=== PATIENT | male | born 1955 | race Caucasian/White ===

== ENCOUNTER 2024-09-28 11:44 | Inpatient (IN) | payer MEDICARE ==
[2024-09-28 12:18] LABS: BASOPHILS PERCENT AUTO 0.1 % (0.1-1.3); EOSINOPHILS PERCENT AUTO 0.1 % (0.0-5.4); IMMATURE GRAN ABSOLUTE AUTO 0.04 K/uL (0.00-0.23); IMMATURE GRAN PERCENT AUTO 0.5 % (0.0-0.7); LYMPHOCYTES ABSOLUTE AUTO 0.91 K/uL (0.8-3.3); LYMPHOCYTES PERCENT AUTO 11.2 % (11.4-47.7); MONOCYTES ABSOLUTE AUTO 0.39 K/uL (0.20-0.90); MONOCYTES PERCENT AUTO 4.8 % (3.3-12.6); NEUTROPHILS ABSOLUTE AUTO 6.77 K/uL (1.0-7.6); NEUTROPHILS PERCENT AUTO 83.3 % (40.0-78.1); PLATELET COUNT,PLT 183 K/uL (130-375); RED BLOOD CELL COUNT 3.79 M/uL (4.14-5.76); WHITE BLOOD CELL COUNT,WBC 8.1 K/uL (3.2-11.0)
[2024-09-28 12:23] LABS: BASOPHILS ABSOLUTE AUTO 0.01 K/uL (0.00-0.10); EOSINOPHILS ABSOLUTE AUTO 0.01 K/uL (0.00-0.40)
[2024-09-28 12:35] LABS: INR 1.0
[2024-09-28 12:39] LABS: A/G RATIO 1.1 (1.2-2.2); ALANINE AMINOTRANSFERASE,ALT 28 U/L (12-78); ASPARTATE AMNIOTRANSFERASE,AST 20 U/L (15-37); BILIRUBIN TOTAL 0.7 mg/dL (0.2-1.0); BLOOD UREA NITROGEN,BUN 20 mg/dL (7-18); CARBON DIOXIDE,CO2 28 mmol/L (21-32); CHLORIDE,CL 106 mmol/L (100-108); CREATININE 1.0 mg/dL (0.8-1.3); EST CRCL DRUG DOSING (CG) 70.70 mL/min; ESTIMATED GFR 82 mL/min (>60); GLUCOSE RANDOM 136 mg/dL (74-106); POTASSIUM,K 4.2 mmol/L (3.6-5.2); PROTEIN TOTAL,TP 6.6 g/dL (6.4-8.2); SODIUM,NA 140 mmol/L (140-148)
[2024-09-28 16:38] LABS: PLATELET COUNT,PLT 176.0 K/uL (130-375); RED BLOOD CELL COUNT 3.63 M/uL (4.14-5.76); WHITE BLOOD CELL COUNT,WBC 6.9 K/uL (3.2-11.0)
[2024-09-28 21:04] LABS: PLATELET COUNT,PLT 174.0 K/uL (130-375); RED BLOOD CELL COUNT 3.47 M/uL (4.14-5.76); WHITE BLOOD CELL COUNT,WBC 6.4 K/uL (3.2-11.0)
[2024-09-29 02:59] LABS: PLATELET COUNT,PLT 166.0 K/uL (130-375); RED BLOOD CELL COUNT 3.35 M/uL (4.14-5.76); WHITE BLOOD CELL COUNT,WBC 5.7 K/uL (3.2-11.0)
[2024-09-29 03:21] LABS: A/G RATIO 1.1 (1.2-2.2); ALANINE AMINOTRANSFERASE,ALT 24 U/L (12-78); ASPARTATE AMNIOTRANSFERASE,AST 18 U/L (15-37); BILIRUBIN TOTAL 1.2 mg/dL (0.2-1.0); BLOOD UREA NITROGEN,BUN 18 mg/dL (7-18); CARBON DIOXIDE,CO2 29 mmol/L (21-32); CHLORIDE,CL 107 mmol/L (100-108); CREATININE 0.9 mg/dL (0.8-1.3); EST CRCL DRUG DOSING (CG) 78.56 mL/min; ESTIMATED GFR 93 mL/min (>60); GLUCOSE RANDOM 110 mg/dL (74-106); POTASSIUM,K 3.8 mmol/L (3.6-5.2); PROTEIN TOTAL,TP 5.8 g/dL (6.4-8.2); SODIUM,NA 141 mmol/L (140-148)
[2024-09-29 09:10] LABS: PLATELET COUNT,PLT 177.0 K/uL (130-375); RED BLOOD CELL COUNT 3.54 M/uL (4.14-5.76); WHITE BLOOD CELL COUNT,WBC 5.2 K/uL (3.2-11.0)
[2024-09-29] MEDS: Polyethylene Glycol 3350 Powder 238 GM Bot PO ONE (15:06)
[2024-09-30 05:49] LABS: PLATELET COUNT,PLT 181.0 K/uL (130-375); RED BLOOD CELL COUNT 3.53 M/uL (4.14-5.76); WHITE BLOOD CELL COUNT,WBC 4.5 K/uL (3.2-11.0)
[2024-09-30 06:10] LABS: A/G RATIO 1.2 (1.2-2.2); ALANINE AMINOTRANSFERASE,ALT 27 U/L (12-78); ASPARTATE AMNIOTRANSFERASE,AST 19 U/L (15-37); BILIRUBIN TOTAL 1.1 mg/dL (0.2-1.0); BLOOD UREA NITROGEN,BUN 16 mg/dL (7-18); CARBON DIOXIDE,CO2 28 mmol/L (21-32); CHLORIDE,CL 107 mmol/L (100-108); CREATININE 1.1 mg/dL (0.8-1.3); EST CRCL DRUG DOSING (CG) 64.27 mL/min; ESTIMATED GFR 73 mL/min (>60); GLUCOSE RANDOM 115 mg/dL (74-106); POTASSIUM,K 3.9 mmol/L (3.6-5.2); PROTEIN TOTAL,TP 6.6 g/dL (6.4-8.2); SODIUM,NA 142 mmol/L (140-148)
[2024-09-30] MEDS ORDERED: fentaNYL 100 MCG/2 ML SDV ONE (10:26)
[2024-09-30] MEDS ORDERED: Propofol 200 MG/20 ML SDV ONE (10:26)
[2024-09-30] MEDS ORDERED: Midazolam 1 MG/ML 2 ML SDV ONE (10:26)
[2024-09-30] MEDS ORDERED: Lactated Ringers 1,000 ML ONE (11:28)
[2024-09-30] MEDS: Iopamidol 755 Mg/ML 100 ML Bottle IV SCH (13:55)
[2024-09-30] MEDS: Sodium Chloride 0.9% 10 ML Syringe FLUSH PRN (13:55)
[2024-09-30 14:16] LABS: PLATELET COUNT,PLT 171.0 K/uL (130-375); RED BLOOD CELL COUNT 3.23 M/uL (4.14-5.76); WHITE BLOOD CELL COUNT,WBC 4.0 K/uL (3.2-11.0)
== END 2024-09-30 16:45 | disposition home or self-care (01) | DRG 379 ==
LOC: JP.ED 11:44 → JP.MS 15:04
PROVIDERS: ADMIT Student in an Organized Health Care Education/Training Program; ATTEND Student in an Organized Health Care Education/Training Program
PROC: 0DJD8ZZ Inspection of Lower Intestinal Tract, Via Natural or Artificial Opening Endoscopic (ICD-10-PCS; principal; 2024-09-28)
DX: K92.1 Melena (principal); Z66 Do not resuscitate; D64.9 Anemia, unspecified; H54.7 Unspecified visual loss; Z98.890 Other specified postprocedural states
CPT/HCPCS: 00813-QZ; 36415; 74174; 74174-26; 80053; 85018; 85025; 85027; 85610; 86850; 86900; 86901; 99223; 99232; 99238; 99285; A9270-GY; J2250; J2470; J2704; J3010; J7120; Q9967